=== PATIENT | female | born 1975 | race Caucasian/White ===

== ENCOUNTER → 2017-07-01 | Outpatient (REF) | payer OTHER ==
[2017-07-01 20:45] LABS: MEAN CORPUSCULAR HEMOGLOBIN 29.8 pg (27.0-33.0); MEAN CORPUSCULAR HGB CONC 33.6 g/dl (32.0-36.5); MEAN CORPUSCULAR VOLUME 88.6 fl (80.0-96.0); PLATELET COUNT, AUTOMATED 409 10^3/uL (150-450); RED CELL DISTRIBUTION WIDTH 12.7 % (11.5-14.5); WHITE BLOOD COUNT 11.4 10^3/uL (4.0-10.0)
[2017-07-01 21:09] LABS: FOLATE 9.8 NG/ML; VITAMIN B12 LEVEL 941 PG/ML
[2017-07-01 21:15] LABS: ALBUMIN 3.9 GM/DL (3.2-5.2); ALBUMIN/GLOBULIN RATIO 1.05 (1.00-1.93); ALKALINE PHOSPHATASE 115 U/L (45-117); ALT/SGPT 36 U/L (12-78); ANION GAP 7 MEQ/L (8-16); AST/SGOT 19 U/L (7-37); BILIRUBIN,TOTAL 0.2 MG/DL (0.2-1.0); BLOOD UREA NITROGEN 12 MG/DL (7-18); CALCIUM LEVEL 8.9 MG/DL (8.5-10.1); CARBON DIOXIDE LEVEL 29 MEQ/L (21-32); CHLORIDE LEVEL 106 MEQ/L (98-107); CREATININE FOR GFR 0.62 MG/DL (0.55-1.02); FREE T4 0.84 NG/DL (0.76-1.46); GLOMERULAR FILTRATION RATE > 60.0 (>58); GLUCOSE, FASTING 128 MG/DL (70-105); MAGNESIUM LEVEL 2.1 MG/DL (1.8-2.4); POTASSIUM SERUM 3.8 MEQ/L (3.5-5.1); SODIUM LEVEL 142 MEQ/L (136-145); TOTAL PROTEIN 7.6 GM/DL (6.4-8.2)
[2017-07-01 21:16] LABS: ERYTHROCYTE SEDIMENTATION RATE 16 mm/hr (0-20)
== END ==
LOC: M SFHCADAM 15:35
PROVIDERS: ATTEND Physician Assistant
DX: G25.81 Restless legs syndrome (principal); R29.898 Other symptoms and signs involving the musculoskeletal system

== ENCOUNTER 2018-02-22 10:57 | Emergency (ER) | payer MEDICAID, OTHER ==
[2018-02-22] MEDS: NS 500 ML IV (12:00)
[2018-02-22] MEDS ORDERED: ISOVUE-370 76% 100ML VIAL (Q9967) As Ordered (12:07)
[2018-02-22 12:09] LABS: BASO # 0.1 10^3/uL (0.0-0.2); BASO % 0.5 % (0.0-1.0); EOS # 0.1 10^3/uL (0.0-0.50); EOS % 0.8 % (0.0-3.0); HEMATOCRIT 42.8 % (36.0-47.0); HEMOGLOBIN 14.2 g/dl (12.0-15.5); IMMATURE GRANULOCYTE % 0.8 % (0-3.0); LYMPH # 2.9 10^3/uL (1.5-4.5); LYMPH % 23.1 % (24.0-44.0); MEAN CORPUSCULAR HEMOGLOBIN 30.7 pg (27.0-33.0); MEAN CORPUSCULAR HGB CONC 33.2 g/dl (32.0-36.5); MEAN CORPUSCULAR VOLUME 92.4 fl (80.0-96.0); MONO # 0.8 10^3/uL (0.0-0.8); MONO % 5.9 % (0.0-5.0); NEUTROPHILS # 8.8 10^3/uL (1.8-7.7); NEUTROPHILS % 68.9 % (36.0-66.0); PLATELET COUNT, AUTOMATED 399 10^3/uL (150-450); RED BLOOD COUNT 4.63 10^6/uL (4.00-5.40); RED CELL DISTRIBUTION WIDTH 12.5 % (11.5-14.5); WHITE BLOOD COUNT 12.7 10^3/uL (4.0-10.0)
[2018-02-22] MEDS: GASTROGRAFIN SOLUTION 30ML (Q9963) PO ×2 (12:10→12:40)
[2018-02-22 12:11] LABS: APPEARANCE, URINE CLOUDY (CLEAR); BACTERIA, URINE AUTO 1+ (NEGATIVE); BILIRUBIN, URINE AUTO 1+ (NEGATIVE); BLOOD, URINE BLOOD NEGATIVE (NEGATIVE); CALCIUM OXALATE CRYSTALS LARGE; COLOR, URINE AMBER (YELLOW); GLUCOSE, URINE (UA) AUTO NEGATIVE (NEGATIVE); KETONE, URINE AUTO TRACE mg/dL (NEGATIVE); LEUKOCYTE ESTERASE, URINE AUTO 2+ (NEGATIVE); MUCUS, URINE LARGE (NEGATIVE); NITRITE, URINE AUTO NEGATIVE (NEGATIVE); PROTEIN, URINE AUTO 2+ mg/dL (NEGATIVE); RBC, URINE AUTO 18 /HPF (0-3); SPECIFIC GRAVITY URINE AUTO 1.029 (1.002-1.035); SQUAMOUS EPITHELIAL CELL UR AU 7 /HPF (0-6); WBC, URINE AUTO 5 /HPF (0-3)
[2018-02-22 12:34] LABS: LACTIC ACID SEPSIS PROTOCOL 1.2 MMOL/L (0.4-2.0)
[2018-02-22 12:35] LABS: ALBUMIN 3.6 GM/DL (3.2-5.2); ALBUMIN/GLOBULIN RATIO 0.88 (1.00-1.93); ALKALINE PHOSPHATASE 98 U/L (45-117); ALT/SGPT 40 U/L (12-78); AMYLASE 25 U/L (25-115); ANION GAP 6 MEQ/L (8-16); AST/SGOT 20 U/L (7-37); BILIRUBIN,TOTAL 0.4 MG/DL (0.2-1.0); BLOOD UREA NITROGEN 9 MG/DL (7-18); C REACTIVE PROTEIN QUANTITATIV < 0.30 MG/DL (0.00-0.30); CARBON DIOXIDE LEVEL 29 MEQ/L (21-32); CHLORIDE LEVEL 106 MEQ/L (98-107); CPK CREATINE PHOSPHOKINASE 144 U/L (26-192); GLOMERULAR FILTRATION RATE > 60.0 (>58); GLUCOSE, FASTING 130 MG/DL (70-100); LIPASE 69 U/L (73-393); POTASSIUM SERUM 3.7 MEQ/L (3.5-5.1); SODIUM LEVEL 141 MEQ/L (136-145); TOTAL PROTEIN 7.7 GM/DL (6.4-8.2); TROPONIN I < 0.02 NG/ML (< 0.10)
[2018-02-22 12:43] LABS: CK-MB VALUE MASS 3.4 NG/ML (<3.6); MB/CK RELATIVE INDEX 2.36 (< OR =4)
== END 2018-02-22 14:45 | disposition home or self-care (01) ==
LOC: M ED 10:57
DX: K27.3 Acute peptic ulcer, site unspecified, without hemorrhage or perforation (principal)
CPT/HCPCS: Q9963

== ENCOUNTER → 2018-04-16 | Outpatient (CLI) | payer MEDICAID ==
[2018-04-16 18:19] LABS: ERYTHROCYTE SEDIMENTATION RATE 19 mm/hr (0-20)
[2018-04-16 18:28] LABS: ESTIMATED AVERAGE GLUCOSE 148 MG/DL (60-110); HEMOGLOBIN A1c 6.8 %
[2018-04-16 18:29] LABS: FERRITIN 66 NG/ML (8-252); IRON (FE) 51 UG/DL (50-170); PERCENT SATURATION 15.1 % (13.2-45.0); RHEUMATOID FACTOR QUANT < 10.0 IU/ML (<15.0); TOTAL IRON BINDING CAPACITY 337 UG/DL (250-450); TOTAL PROTEIN 7.1 GM/DL (6.4-8.2)
[2018-04-16 18:31] LABS: TOTAL 25(OH) VITAMIN D 27.2 NG/ML (30.0-100.0)
[2018-04-21 13:41] LABS: ALBUMIN 4.05 GM/DL (3.29-5.55); ALPHA-1-GLOBULIN % 4.2 % (2.9-4.9); ALPHA-2-GLOBULINS % 9.6 % (7.1-11.8); BETA-1-GLOBULINS % 6.9 % (4.7-7.2); BETA-2-GLOBULINS % 5.1 % (3.2-6.5); GAMMA GLOBULIN % 17.2 % (11.1-18.8)
[2018-04-21 13:42] LABS: ALPHA-2-GLOBULINS 0.68 GM/DL (0.42-0.99); BETA-1-GLOBULINS 0.49 GM/DL (0.28-0.60); BETA-2-GLOBULINS 0.36 GM/DL (0.19-0.55); GAMMA GLOBULINS 1.22 GM/DL (0.65-1.58)
[2018-04-22 00:07] LABS: ANTINUCLEAR ANTIBODIES DIRECT Negative (Negative); VITAMIN E(ALPHA TOCOPHEROL) 7.6 mg/L (7.0-25.1); VITAMIN E(GAMMA TOCOPHEROL) 1.6 mg/L (0.5-5.5)
[2018-04-22 08:48] LABS: VITAMIN B1 LEVEL WHOLE BLOOD 171.4 nmol/L (66.5-200.0); VITAMIN B6,PYRIDOXAL PHOSPHATE 12.7 ug/L (2.0-32.8)
== END ==
LOC: M LAB 16:11
DX: D50.9 Iron deficiency anemia, unspecified (principal); E07.9 Disorder of thyroid, unspecified; E11.9 Type 2 diabetes mellitus without complications; R20.0 Anesthesia of skin
CPT/HCPCS: 82746

== ENCOUNTER → 2018-09-09 | Outpatient (CLI) | payer MEDICAID ==
[~2018-09-09] MED LIST: CARB25TA9 PO; MACR100C43 PO; PEPC1TAB2 PO; ROPI0.5T PO; ZOFR4TAB14 PO
[2018-09-09 09:43] LABS: APPEARANCE, URINE CLOUDY (CLEAR); BACTERIA, URINE AUTO NEGATIVE (NEGATIVE); BILIRUBIN, URINE AUTO NEGATIVE (NEGATIVE); BLOOD, URINE BLOOD 3+ (NEGATIVE); COLOR, URINE AMBER (YELLOW); GLUCOSE, URINE (UA) AUTO NEGATIVE (NEGATIVE); KETONE, URINE AUTO NEGATIVE (NEGATIVE); LEUKOCYTE ESTERASE, URINE AUTO TRACE (NEGATIVE); MUCUS, URINE SMALL (NEGATIVE); NITRITE, URINE AUTO NEGATIVE (NEGATIVE); PROTEIN, URINE AUTO 1+ mg/dL (NEGATIVE); RBC, URINE AUTO 6 /HPF (0-3); SPECIFIC GRAVITY URINE AUTO 1.026 (1.002-1.035); SQUAMOUS EPITHELIAL CELL UR AU 24 /HPF (0-6); UROBILINOGEN, URINE AUTO 0.2 mg/dL (0.0-2.0); WBC, URINE AUTO 10 /HPF (0-3)
[2018-09-09 09:45] LABS: BASO # 0.1 10^3/uL (0.0-0.2); BASO % 0.6 % (0.0-1.0); EOS # 0.2 10^3/uL (0.0-0.50); EOS % 1.6 % (0.0-3.0); HEMATOCRIT 42.6 % (36.0-47.0); LYMPH # 2.6 10^3/uL (1.5-4.5); LYMPH % 25.5 % (24.0-44.0); MEAN CORPUSCULAR HEMOGLOBIN 30.7 pg (27.0-33.0); MEAN CORPUSCULAR HGB CONC 32.9 g/dl (32.0-36.5); MEAN CORPUSCULAR VOLUME 93.4 fl (80.0-96.0); MONO # 0.5 10^3/uL (0.0-0.8); MONO % 5.3 % (0.0-5.0); NEUTROPHILS # 6.7 10^3/uL (1.8-7.7); NEUTROPHILS % 66.3 % (36.0-66.0); PLATELET COUNT, AUTOMATED 350 10^3/uL (150-450); RED BLOOD COUNT 4.56 10^6/uL (4.00-5.40); WHITE BLOOD COUNT 10.1 10^3/uL (4.0-10.0)
[2018-09-09 10:08] LABS: HEMOGLOBIN A1c 6.6 %
[2018-09-09 10:22] LABS: ALBUMIN 3.8 GM/DL (3.2-5.2); ALT/SGPT 27 U/L (12-78); BILIRUBIN,TOTAL 0.4 MG/DL (0.2-1.0); BLOOD UREA NITROGEN 13 MG/DL (7-18); CALCIUM LEVEL 8.6 MG/DL (8.5-10.1); CARBON DIOXIDE LEVEL 29 MEQ/L (21-32); CHLORIDE LEVEL 107 MEQ/L (98-107); CHOLESTEROL LEVEL 196 MG/DL (<200); CREATININE FOR GFR 0.67 MG/DL (0.55-1.30); GLOMERULAR FILTRATION RATE > 60.0 (>58); GLUCOSE, FASTING 112 MG/DL (70-100); HDL CHOLESTEROL 46 MG/DL (>40); LDL CHOLESTEROL 129 MG/DL (<100); NON-HDL-C 150 MG/DL; POTASSIUM SERUM 4.3 MEQ/L (3.5-5.1); SODIUM LEVEL 142 MEQ/L (136-145); TOTAL PROTEIN 7.2 GM/DL (6.4-8.2); TRIGLYCERIDES LEVEL 104 MG/DL (<150)
[2018-09-09 10:24] LABS: TOTAL 25(OH) VITAMIN D 36.4 NG/ML (30.0-100.0)
== END ==
LOC: M LAB 08:25
PROVIDERS: ATTEND Family Medicine
DX: R73.9 Hyperglycemia, unspecified (principal)

== ENCOUNTER 2019-09-19 17:05 | Emergency (ER) | payer MEDICAID, OTHER ==
[~2019-09-19] VITALS: Ht 157.5 cm; Wt 104.1 kg
[~2019-09-19 17:05] MED LIST changes: -PEPC1TAB2 PO; +PEPC40TA12 PO; -ROPI0.5T PO; +ROPI0.5T3 PO
[2019-09-19] MEDS ORDERED: DULO1CAP4 (17:14)
[2019-09-19] MEDS ORDERED: METF500T13 (17:14)
[2019-09-19 17:19] VITALS: BP 150/92
[2019-09-19] MEDS ORDERED: KETOROLAC TROMETHAMINE 10 MG TAB PO ONE (18:00)
--- NOTE | 2019-09-20 08:35 | REP ---
CT study of the cervical spine without contrast: Repeat dictation. History: Trauma. Preliminary report is provided at the time of exam by Caitlin ROSADO. Technique: Helical scanning is acquired and overlapping 2 mm high resolution axial images were generated and reviewed at bone and soft tissue window settings. Coronal and sagittal multiplanar re-formations images are generated. The field of view does not include the bottom anterior edge of the C7 vertebral body in this acquisition. CT findings: There is no evidence of cervical spine element fracture. No skull base fracture is seen. Cervical vertebral body heights are preserved. Alignment is normal. Facet joints are normally aligned bilaterally at each cervical level on multiplanar re-formations images. There is no evidence of intraspinal or paraspinal hematoma. No extra vertebral abnormality is seen. Impression: Negative CT study of the cervical spine without contrast. No fracture seen. The anterior inferior margin of the C7 vertebral body is not included in the field of view. Electronically Signed by Joseph Sterling MD 09/20/2019 08:26 A
--- NOTE | 2019-09-20 08:55 | REP ---
CT brain without contrast: Repeat dictation. History: Trauma. Preliminary report is provided at the time of exam by Caitlin Domingo. Findings: Preliminary digital charge weigher radiograph is unremarkable. There is a right frontal scalp hematoma. No skull fracture is appreciated. Visualized paranasal sinuses are clear. No bony calvarial defect is seen. No intraorbital abnormality is appreciated. On soft tissue window settings, the lateral, third, and fourth ventricles are normal in size and position. Logan-white differentiation pattern is intact above and below the tentorium. There is no evidence of intracranial hemorrhage. No evidence of infarct, mass or extra-axial fluid collection. Impression: Right frontal scalp injury. Otherwise negative noncontrast head CT. Electronically Signed by Joseph Sterling MD 09/20/2019 10:51 A
== END 2019-09-19 18:04 | disposition home or self-care (01) ==
LOC: M ED 17:05
DX: S00.03XA Contusion of scalp, initial encounter (principal); W22.8XXA Striking against or struck by other objects, initial encounter; Y92.512 Supermarket, store or market as the place of occurrence of the external cause; Y93.9 Activity, unspecified; Y99.9 Unspecified external cause status; E11.9 Type 2 diabetes mellitus without complications; Z79.899 Other long term (current) drug therapy; Z79.84 Long term (current) use of oral hypoglycemic drugs

== ENCOUNTER 2020-02-01 09:20 | Emergency (ER) | payer OTHER ==
[~2020-02-01] VITALS: Ht 157.5 cm; Wt 99.5 kg
[~2020-02-01 09:20] MED LIST changes: +DULO1CAP4; +METF500T13
[2020-02-01] MEDS ORDERED: IBUP80TA (09:27)
[2020-02-01 10:07] LABS: BASO # 0.1 10^3/uL (0.0-0.2); BASO % 0.7 % (0.0-1.0); EOS # 0.2 10^3/uL (0.0-0.5); EOS % 1.9 % (0.0-3.0); HEMATOCRIT 42.3 % (36.0-47.0); HEMOGLOBIN 14.2 g/dl (12.0-15.5); LYMPH # 2.8 10^3/uL (1.5-5.0); LYMPH % 27.4 % (24.0-44.0); MEAN CORPUSCULAR HEMOGLOBIN 30.7 pg (27.0-33.0); MEAN CORPUSCULAR HGB CONC 33.6 g/dl (32.0-36.5); MEAN CORPUSCULAR VOLUME 91.4 fl (80.0-96.0); MONO # 0.6 10^3/uL (0.0-0.8); MONO % 5.7 % (0.0-5.0); NEUTROPHILS # 6.5 10^3/uL (1.5-8.5); NEUTROPHILS % 63.5 % (36.0-66.0); PLATELET COUNT, AUTOMATED 348 10^3/uL (150-450); RED BLOOD COUNT 4.63 10^6/uL (4.00-5.40); WHITE BLOOD COUNT 10.2 10^3/uL (4.0-10.0)
[2020-02-01 10:09] LABS: VENOUS BASE EXCESS -0.7 (-2.0-2.0); VENOUS HCO3 26.6 MEQ/L (23.0-27.0); VENOUS O2 SATURATION 61.4 % (60.0-80.0); VENOUS PARTIAL PRESSURE CO2 53.9 mmHg (38.0-50.0); VENOUS PARTIAL PRESSURE O2 33.6 mmHg (30.0-50.0); VENOUS PH 7.311 UNITS (7.330-7.430); VENOUS TOTAL CO2 28.2 MEQ/L (24.0-28.0)
[2020-02-01 10:36] LABS: HEMOGLOBIN A1c 9.6 %
[2020-02-01 10:50] LABS: BLOOD UREA NITROGEN 17 MG/DL (7-18); CALCIUM LEVEL 9.5 MG/DL (8.5-10.1); CARBON DIOXIDE LEVEL 29 MEQ/L (21-32); CHLORIDE LEVEL 102 MEQ/L (98-107); CREATININE FOR GFR 0.82 MG/DL (0.55-1.30); GLOMERULAR FILTRATION RATE > 60.0 (>58); GLUCOSE, FASTING 233 MG/DL (70-100); POTASSIUM SERUM 4.6 MEQ/L (3.5-5.1); SODIUM LEVEL 136 MEQ/L (136-145)
[2020-02-01 11:10] VITALS: BP 138/91
== END 2020-02-01 11:12 | disposition home or self-care (01) ==
LOC: M ED 09:20
DX: E11.65 Type 2 diabetes mellitus with hyperglycemia (principal); Z79.84 Long term (current) use of oral hypoglycemic drugs; Z79.899 Other long term (current) drug therapy

== ENCOUNTER → 2020-07-26 | Outpatient (CLI) | payer SELFPAY ==
[~2020-07-26] MED LIST changes: +IBUP80TA
== END ==
LOC: M LABSMTC 10:12
PROVIDERS: ATTEND Pediatrics
DX: Z20.822 Contact with and (suspected) exposure to COVID-19 (principal)

== ENCOUNTER → 2020-10-17 | Outpatient (CLI) | payer SELFPAY | LOC: M LABSMTC 10:45 | PROVIDERS: ATTEND Pediatrics | DX: Z11.52 Encounter for screening for COVID-19 (principal) ==

== ENCOUNTER → 2021-09-24 | Outpatient (CLI) | payer BC, MEDICAID ==
[2021-09-24 08:52] LABS: HEMOGLOBIN A1c 10.7 %
[2021-09-24 09:06] LABS: ALBUMIN 3.7 GM/DL (3.2-5.2); ALT/SGPT 63 U/L (12-78); BILIRUBIN,TOTAL 0.7 MG/DL (0.2-1.0); BLOOD UREA NITROGEN 9 MG/DL (7-18); CALCIUM LEVEL 8.5 MG/DL (8.5-10.1); CARBON DIOXIDE LEVEL 32 MEQ/L (21-32); CHLORIDE LEVEL 100 MEQ/L (98-107); CHOLESTEROL LEVEL 205 MG/DL (<200); CHOLESTEROL RISK RATIO 4.361 (<5); CREATININE FOR GFR 0.61 MG/DL (0.55-1.30); FREE T4 1.08 NG/DL (0.76-1.46); GLOMERULAR FILTRATION RATE > 60.0 (>58); GLUCOSE, FASTING 268 MG/DL (70-100); HDL CHOLESTEROL 47 MG/DL (>40); LDL CHOLESTEROL 127 MG/DL (<100); NON-HDL-C 158 MG/DL; POTASSIUM SERUM 3.7 MEQ/L (3.5-5.1); RHEUMATOID FACTOR QUANT < 10.0 IU/ML (<15.0); SODIUM LEVEL 138 MEQ/L (136-145); TRIGLYCERIDES LEVEL 153 MG/DL (<150)
[2021-09-25 14:09] LABS: ANTINUCLEAR ANTIBODIES DIRECT Negative (Negative)
== END ==
LOC: M LAB 07:34
PROVIDERS: ATTEND Student in an Organized Health Care Education/Training Program
DX: Z00.00 Encounter for general adult medical examination without abnormal findings (principal); R52 Pain, unspecified

== ENCOUNTER → 2021-09-25 | Outpatient (CLI) | payer BC, MEDICAID | LOC: M WHC 08:34 | PROVIDERS: ATTEND Student in an Organized Health Care Education/Training Program | DX: Z12.31 Encounter for screening mammogram for malignant neoplasm of breast (principal) ==

== ENCOUNTER → 2021-12-25 | Outpatient (CLI) | payer BC, MEDICAID ==
[2021-12-25 10:20] LABS: HEMOGLOBIN A1c 9.8 %
== END ==
LOC: M LAB 07:51
PROVIDERS: ATTEND Student in an Organized Health Care Education/Training Program
DX: E11.9 Type 2 diabetes mellitus without complications (principal)

== ENCOUNTER → 2022-05-23 | Outpatient (CLI) | payer MEDICAID, OTHER ==
[2022-05-23 10:24] LABS: HEMOGLOBIN A1c 7.6 %
== END ==
LOC: M LAB 07:25
PROVIDERS: ATTEND Student in an Organized Health Care Education/Training Program
DX: E11.65 Type 2 diabetes mellitus with hyperglycemia (principal)

== ENCOUNTER → 2022-08-28 | Outpatient (CLI) | payer OTHER ==
[2022-08-28 08:33] LABS: HEMOGLOBIN A1c 7.3 % (4.0-6.0)
== END ==
LOC: M LAB 07:20
PROVIDERS: ATTEND Student in an Organized Health Care Education/Training Program
DX: E11.9 Type 2 diabetes mellitus without complications (principal)

== ENCOUNTER 2022-09-02 13:50 | Emergency (ER) | payer OTHER, MEDICAID ==
[~2022-09-02] VITALS: Ht 157.5 cm; Wt 80.9 kg
[2022-09-02 15:42] VITALS: BP 140/79
== END 2022-09-02 16:50 | disposition left against medical advice (07) ==
LOC: M ED 16:50
DX: Z53.21 Procedure and treatment not carried out due to patient leaving prior to being seen by health care provider (principal)

== ENCOUNTER → 2022-09-18 | Outpatient (REF) | payer OTHER | LOC: M LAB REF 20:38 | PROVIDERS: ATTEND Physician Assistant | DX: N30.00 Acute cystitis without hematuria (principal) ==

== ENCOUNTER → 2022-09-27 | Outpatient (REF) | payer OTHER, MEDICAID ==
[2022-09-27 11:45] LABS: APPEARANCE, URINE CLEAR (CLEAR); BACTERIA, URINE AUTO NEGATIVE (NEGATIVE); BILIRUBIN, URINE AUTO NEGATIVE (NEGATIVE); BLOOD, URINE BLOOD NEGATIVE (NEGATIVE); COLOR, URINE YELLOW (YELLOW); GLUCOSE, URINE (UA) AUTO 3+ mg/dL (NEGATIVE); KETONE, URINE AUTO NEGATIVE (NEGATIVE); LEUKOCYTE ESTERASE, URINE AUTO NEGATIVE (NEGATIVE); MUCUS, URINE SMALL (NEGATIVE); NITRITE, URINE AUTO NEGATIVE (NEGATIVE); PROTEIN, URINE AUTO NEGATIVE (NEGATIVE); RBC, URINE AUTO 2 /HPF (0-3); SPECIFIC GRAVITY URINE AUTO 1.039 (1.002-1.035); SQUAMOUS EPITHELIAL CELL UR AU 4 /HPF (0-6); UROBILINOGEN, URINE AUTO 0.2 mg/dL (0.0-2.0); WBC, URINE AUTO 1 /HPF (0-3)
== END ==
LOC: M SFHCLERA 11:05
PROVIDERS: ATTEND Student in an Organized Health Care Education/Training Program
DX: R30.0 Dysuria (principal)

== ENCOUNTER → 2023-08-18 | Outpatient (CLI) | payer OTHER ==
[~2023-08-18] MED LIST changes: -ROPI0.5T3 PO; +ROPI0.5T33 PO
[2023-08-18 07:32] LABS: BASO # 0.1 10^3/uL (0.0-0.2); BASO % 0.5 % (0.0-1.0); EOS # 0.2 10^3/uL (0.0-0.5); EOS % 1.7 % (0.0-3.0); HEMATOCRIT 43.9 % (36.0-47.0); HEMOGLOBIN 14.9 g/dl (12.0-15.5); LYMPH # 2.9 10^3/uL (1.5-5.0); LYMPH % 21.9 % (24.0-44.0); MEAN CORPUSCULAR HEMOGLOBIN 30.9 pg (27.0-33.0); MEAN CORPUSCULAR HGB CONC 33.9 g/dl (32.0-36.5); MEAN CORPUSCULAR VOLUME 91.1 fl (80.0-96.0); MONO # 0.8 10^3/uL (0.0-0.8); MONO % 5.8 % (2.0-8.0); NEUTROPHILS % 69.4 % (36.0-66.0); PLATELET COUNT, AUTOMATED 344 10^3/uL (150-450); RED BLOOD COUNT 4.82 10^6/uL (4.00-5.40)
[2023-08-18 07:59] LABS: ALBUMIN 3.3 G/DL (3.2-5.2); ALKALINE PHOSPHATASE 108 U/L (46-116); ALT/SGPT 31 U/L (7.0-40); AST/SGOT 18 U/L (<34); BILIRUBIN,TOTAL 0.5 MG/DL (0.3-1.2); BLOOD UREA NITROGEN 11 MG/DL (9-23); CALCIUM LEVEL 8.7 MG/DL (8.5-10.1); CARBON DIOXIDE LEVEL 28 MMOL/L (20-31); CHLORIDE LEVEL 103 MMOL/L (98-107); CHOLESTEROL LEVEL 156 MG/DL (<200); CHOLESTEROL RISK RATIO 3.27 (<5); CREATININE FOR GFR 0.55 MG/DL (0.55-1.30); GLOMERULAR FILTRATION RATE > 60.0 (>58); GLUCOSE, FASTING 199 MG/DL (60-100); HDL CHOLESTEROL 47.6 MG/DL (>40); IRON (FE) 99 UG/DL (50-170); MAGNESIUM LEVEL 1.8 MG/DL (1.8-2.4); NON-HDL-C 108.4 MG/DL; PERCENT SATURATION 30.9 % (13.2-45.0); POTASSIUM SERUM 4.5 MMOL/L (3.5-5.1); SODIUM LEVEL 138 MMOL/L (136-145); TOTAL IRON BINDING CAPACITY 320 UG/DL (250-425); TOTAL PROTEIN 6.9 G/DL (5.7-8.2); TRIGLYCERIDES LEVEL 167 MG/DL (<150)
[2023-08-18 08:00] LABS: THYROID STIMULATING HORMONE 2.943 uIU/ML (0.55-4.78); TOTAL 25(OH) VITAMIN D 41.8 NG/ML (20.0-100.0)
[2023-08-18 08:01] LABS: FERRITIN 35.5 NG/ML (7.3-270.7); FREE T4 0.99 NG/DL (0.89-1.76); VITAMIN B12 LEVEL 902 PG/ML (211-911)
[2023-08-18 08:08] LABS: FOLATE 12.25 NG/ML (>5.4)
[2023-08-18 08:29] LABS: CREATININE, URINE 83.2 MG/DL; MAU/CREAT RATIO 9.6 MCG/MG (0.0-30.0)
== END ==
LOC: M LAB 07:02
PROVIDERS: ATTEND Physician Assistant
DX: G25.81 Restless legs syndrome (principal)

== ENCOUNTER → 2024-04-09 | Outpatient (REF) | payer OTHER ==
[2024-04-09 18:24] LABS: BASO # 0.1 10^3/uL (0.0-0.2); BASO % 0.5 % (0.0-1.0); EOS # 0.2 10^3/uL (0.0-0.5); EOS % 1.4 % (0.0-3.0); HEMATOCRIT 44.9 % (36.0-47.0); HEMOGLOBIN 15.1 g/dl (12.0-15.5); LYMPH # 4.2 10^3/uL (1.5-5.0); LYMPH % 28.3 % (24.0-44.0); MEAN CORPUSCULAR HEMOGLOBIN 30.4 pg (27.0-33.0); MEAN CORPUSCULAR HGB CONC 33.6 g/dl (32.0-36.5); MEAN CORPUSCULAR VOLUME 90.5 fl (80.0-96.0); MONO # 0.7 10^3/uL (0.0-0.8); MONO % 4.5 % (2.0-8.0); NEUTROPHILS # 9.5 10^3/uL (1.5-8.5); NEUTROPHILS % 64.7 % (36.0-66.0); PLATELET COUNT, AUTOMATED 439 10^3/uL (150-450); RED BLOOD COUNT 4.96 10^6/uL (4.00-5.40); WHITE BLOOD COUNT 14.7 10^3/uL (4.0-10.0)
[2024-04-09 18:40] LABS: ALBUMIN 3.9 G/DL (3.2-5.2); ALKALINE PHOSPHATASE 98 U/L (46-116); ALT/SGPT 20 U/L (7.0-40); AST/SGOT 14 U/L (<34); BILIRUBIN,TOTAL 0.4 MG/DL (0.3-1.2); BLOOD UREA NITROGEN 11 MG/DL (9-23); CALCIUM LEVEL 9.4 MG/DL (8.5-10.1); CARBON DIOXIDE LEVEL 25 MMOL/L (20-31); CHLORIDE LEVEL 107 MMOL/L (98-107); CREATININE FOR GFR 0.58 MG/DL (0.55-1.30); GLOMERULAR FILTRATION RATE > 60.0 (>58); GLUCOSE, FASTING 129 MG/DL (60-100); POTASSIUM SERUM 4.1 MMOL/L (3.5-5.1); SODIUM LEVEL 138 MMOL/L (136-145); TOTAL PROTEIN 7.3 G/DL (5.7-8.2)
[2024-04-09 18:42] LABS: THYROID STIMULATING HORMONE 2.887 uIU/ML (0.55-4.78)
[2024-04-09 19:07] LABS: HEMOGLOBIN A1c 6.6 % (4.0-6.0)
== END ==
LOC: M SFHCLERA 14:38
PROVIDERS: ATTEND Physician Assistant
DX: E11.65 Type 2 diabetes mellitus with hyperglycemia (principal); D72.829 Elevated white blood cell count, unspecified

== ENCOUNTER → 2024-04-14 | Outpatient (CLI) | payer OTHER ==
[2024-04-14 14:19] LABS: BASO # 0.1 10^3/uL (0.0-0.2); BASO % 0.5 % (0.0-1.0); EOS # 0.3 10^3/uL (0.0-0.5); EOS % 1.9 % (0.0-3.0); HEMATOCRIT 46.2 % (36.0-47.0); HEMOGLOBIN 15.5 g/dl (12.0-15.5); LYMPH # 3.7 10^3/uL (1.5-5.0); LYMPH % 27.1 % (24.0-44.0); MEAN CORPUSCULAR HEMOGLOBIN 30.3 pg (27.0-33.0); MEAN CORPUSCULAR HGB CONC 33.5 g/dl (32.0-36.5); MEAN CORPUSCULAR VOLUME 90.2 fl (80.0-96.0); MONO # 0.6 10^3/uL (0.0-0.8); MONO % 4.8 % (2.0-8.0); NEUTROPHILS # 8.8 10^3/uL (1.5-8.5); NEUTROPHILS % 65.1 % (36.0-66.0); PLATELET COUNT, AUTOMATED 393 10^3/uL (150-450); RED BLOOD COUNT 5.12 10^6/uL (4.00-5.40); WHITE BLOOD COUNT 13.5 10^3/uL (4.0-10.0)
[2024-04-16 00:57] LABS: PROTEIN, TOTAL SO 7.7 g/dL (6.1-8.1)
== END ==
LOC: M LAB 13:41
DX: D72.829 Elevated white blood cell count, unspecified (principal)

== ENCOUNTER → 2024-11-17 | Outpatient (CLI) | payer OTHER ==
[2024-11-17 08:04] LABS: BASO # 0.1 10^3/uL (0.0-0.2); BASO % 0.7 % (0.0-1.0); EOS # 0.2 10^3/uL (0.0-0.5); EOS % 1.9 % (0.0-3.0); HEMATOCRIT 45.3 % (36.0-47.0); HEMOGLOBIN 15.3 g/dl (12.0-15.5); LYMPH # 3.2 10^3/uL (1.5-5.0); LYMPH % 25.3 % (24.0-44.0); MEAN CORPUSCULAR HEMOGLOBIN 29.9 pg (27.0-33.0); MEAN CORPUSCULAR HGB CONC 33.8 g/dl (32.0-36.5); MEAN CORPUSCULAR VOLUME 88.6 fl (80.0-96.0); MONO # 0.8 10^3/uL (0.0-0.8); MONO % 6.3 % (2.0-8.0); NEUTROPHILS # 8.1 10^3/uL (1.5-8.5); NEUTROPHILS % 64.9 % (36.0-66.0); PLATELET COUNT, AUTOMATED 400 10^3/uL (150-450); RED BLOOD COUNT 5.11 10^6/uL (4.00-5.40); WHITE BLOOD COUNT 12.5 10^3/uL (4.0-10.0)
[2024-11-17 08:29] LABS: ALBUMIN 3.8 G/DL (3.2-5.2); ALKALINE PHOSPHATASE 97 U/L (35-104); ALT/SGPT < 9 U/L (7.0-40); AST/SGOT 15 U/L (<34); BILIRUBIN,TOTAL 0.5 MG/DL (0.3-1.2); BLOOD UREA NITROGEN 11 MG/DL (9-23); CALCIUM LEVEL 8.8 MG/DL (8.5-10.1); CARBON DIOXIDE LEVEL 26 MMOL/L (20-31); CHLORIDE LEVEL 105 MMOL/L (98-107); CHOLESTEROL LEVEL 139 MG/DL (<200); CHOLESTEROL RISK RATIO 3.06 (<5); GLOMERULAR FILTRATION RATE > 90.0 (>58); GLUCOSE, FASTING 109 MG/DL (60-100); HDL CHOLESTEROL 45.3 MG/DL (>40); LDL CHOLESTEROL 68.1 MG/DL (<100); NON-HDL-C 93.7 MG/DL; POTASSIUM SERUM 4.3 MMOL/L (3.5-5.1); SODIUM LEVEL 139 MMOL/L (136-145); TRIGLYCERIDES LEVEL 128 MG/DL (<150)
[2024-11-17 08:31] LABS: THYROID STIMULATING HORMONE 2.035 uIU/ML (0.55-4.78); VITAMIN B12 LEVEL 623 PG/ML (211-911)
[2024-11-17 09:35] LABS: HEMOGLOBIN A1c 6.4 % (4.0-6.0)
== END ==
LOC: M LAB 07:20
DX: Z00.00 Encounter for general adult medical examination without abnormal findings (principal); G25.81 Restless legs syndrome